=== PATIENT | female | born 1970 | race African-American/Black ===

== ENCOUNTER 2016-08-19 14:18 | Emergency (ER) | payer SELFPAY ==
[~2016-08-19 14:18] MED LIST: ALPR2TAB3 PO; CYAN1000P SQ; FERR325T PO; GABA800T PO; LISI-515 PO; MULTCHW14 PO; [UNRECOGNIZED DRUG - CODE] PO
[2016-08-19 14:19] VITALS: BP 178/100; PULSE 89; RESP 18; TEMP 98; O2SAT 96
[2016-08-19 16:15] LABS: AUTOMATED NEUTROPHIL # 6.4 TH/MM3 (1.8-7.7); BASOPHIL % 0.4 % (0.0-2.0); EOSINOPHIL # 0.1 TH/MM3 (0-0.4); EOSINOPHIL % 1.4 % (0.0-4.0); HEMATOCRIT 44.3 % (35.0-46.0); HEMO FLAGS DIFF FINAL; LYMPH % 26.9 % (9.0-44.0); LYMPHOCYTE # 2.7 TH/MM3 (1.0-4.8); MEAN CELL VOLUME 88.1 FL (80.0-100.0); MEAN CORPUSCULAR HEMOGLOBIN 29.3 PG (27.0-34.0); MEAN CORPUSCULAR HGB CONC 33.2 % (32.0-36.0); MONO % 6.7 % (0.0-8.0); NEUT % 64.6 % (16.0-70.0); PLATELET COUNT 174 TH/MM3 (150-450); RED BLOOD COUNT 5.02 MIL/MM3 (4.00-5.30); RED CELL DISTRIBUTION WIDTH 13.1 % (11.6-17.2); WHITE BLOOD COUNT 9.9 TH/MM3 (4.0-11.0)
--- NOTE | 2016-08-19 16:28 | RADRPT ---
EXAM DATE/TIME: 08/19/2016 16:01 [facility] COMPARISON: CHEST SINGLE AP, March 23, 2016, 5:40. INDICATIONS : Chest pain and short of breath for several days. MEDICAL HISTORY : Hypertension. Congestive heart failure. Asthma, Diabetes. SURGICAL HISTORY : Cholecystectomy. Gastric bypass. Tubal ligation. ENCOUNTER: Initial ACUITY: 3 days PAIN SCORE: 4/10 LOCATION: Bilateral chest FINDINGS: A single view of the chest demonstrates the lungs to be symmetrically aerated without evidence of mas s, infiltrate or effusion. The cardiomediastinal contours are unremarkable. Osseous structures are intact. CONCLUSION: No acute disease. Lexa Mathews MD FACR on August 19, 2016 at 16:26 Board Certified Radiologist. This report was verified electronically.
[2016-08-19 16:32] LABS: ANION GAP 8 MEQ/L (5-15); BICARBONATE 26.5 MEQ/L (21.0-32.0); BLOOD UREA NITROGEN 7 MG/DL (7-18); CHLORIDE 105 MEQ/L (98-107); GLOMERULAR FILTRATION RATE 84 ML/MIN (>89); POTASSIUM 3.5 MEQ/L (3.5-5.1); SODIUM (NA) 139 MEQ/L (136-145)
[2016-08-19 17:15] LABS: CREATINE KINASE 87 U/L (26-192)
--- NOTE | 2016-08-19 20:12 | EKG ---
Date Performed: 08/19/2016 Time Performed: 15:54:22 PTAGE: 45 years EKG: Sinus rhythm NORMAL ECG NO SIGNIFICANT CHANGE FROM PRIOR ELECTROCARDIOGRAM. PREVIOUS TRACING : 03/23/2016 04.58 DOCTOR: Baldo Carty Interpretating Date/Time 08/19/2016 20:11:29
== END 2016-08-19 18:50 | disposition left against medical advice (07) ==
LOC: NED 14:18
DX: R20.0 Anesthesia of skin (principal); Z53.21 Procedure and treatment not carried out due to patient leaving prior to being seen by health care provider
CPT/HCPCS: 71010; 80048; 82550; 84484; 84703; 85025; 93005; 99281

== ENCOUNTER 2016-10-04 12:07 | Emergency (ER) | payer MEDICAID, OTHER ==
[~2016-10-04] VITALS: Ht 162.6 cm; Wt 101.8 kg
[2016-10-04 13:06] VITALS: BP 158/104; PULSE 86; RESP 17; TEMP 98.2; O2SAT 98
[2016-10-04 13:42] VITALS: O2SAT 98
[2016-10-04] MEDS ORDERED: ONDANSETRON HCL 4 MG/2 ML VIAL IVP ONE (13:45)
[2016-10-04] MEDS ORDERED: SODIUM CHLORIDE 0.9% FLUSH 5 ML FLUSH IVF PRN (13:45)
--- NOTE | 2016-10-04 13:49 | PD ---
HPI Chief Complaint: Anxiety Time Seen by Provider: 13:37 Travel History International Travel<30 days: No Contact w/Intl Traveler<30days: No Traveled to known affect area: No History of Present Illness HPI Patient is a 45-year-old female presenting to the emergency department for evaluation of anxiety, abdominal pain, left arm numbness, palpitations, nausea, headache. Patient states her symptoms started this morning, with the exception of her anxiety. She states anxiety has been bad for approximately 4 days. Patient states she has no primary doctor, she's been out of her alprazolam for the last 2 months. Her primary was Dr. Lopez but she states she was not satisfied with the care. Patient would not elaborate. Patient reports a history of diabetes, congestive heart failure, sleep apnea, anxiety, COPD, hypertension. She states that she has been compliant with the other medications because she was given several months of refills PFSH Past Medical History Hx Anticoagulant Therapy: Yes (plavix) Arthritis: Yes Asthma: Yes Autoimmune Disease: No Blood Disorders: No Anxiety: Yes Depression: Yes Cancer: No Cardiac Catheterization: Yes (X2) Cardiomyopathy: Yes High Cholesterol: Yes Chemotherapy: No Chest Pain: Yes Congestive Heart Failure: Yes COPD: Yes Cerebrovascular Accident: No Coronary Artery Disease: Yes Diabetes: Yes Patient Takes Glucophage: Yes Diminished Hearing: No GERD: Yes Glaucoma: No Headaches: Yes Hepatitis: No Hiatal Hernia: No Hypertension: Yes Immune Disorder: No Kidney Stones: No Musculoskeletal: Yes Neurologic: Yes Psychiatric: Yes (ANXIETY) Reproductive: No Respiratory: Yes (COPD) Immunizations Current: No Migraines: Yes Radiation Therapy: No Renal Failure: Yes Seizures: Yes (2008) Sickle Cell Disease: No Sleep Apnea: Yes (CPAP) Thyroid Disease: No Ulcer: No Tetanus Vaccination: > 5 Years ?: Unknown LMP: UNKNOWN Menopausal: Yes : 11 Para: 10 Miscarriage: 1 Tubal Ligation: Yes Past Surgical History Abdominal Surgery: Yes (GASTRIC BYPASS 2012) AICD: No Cardiac Surgery: Yes (2004,2011 cardiac cath) Cholecystectomy: Yes (2004) Coronary Artery Bypass Graft: No Ear Surgery: No Endocrine Surgery: No Eye Surgery: No Genitourinary Surgery: No Gynecologic Surgery: No Neurologic Surgery: No Oral Surgery: No Pacemaker: No Thoracic Surgery: No Other Surgery: Yes Family History Family Myocardial Infarction: Yes Family Hypercholesterolemia: Yes Social History Alcohol Use: No Tobacco Use: Yes Substance Use: Yes (history of cocaine abuse) Allergies-Medications (Allergen,Severity, Reaction): Coded Allergies: Tramadol (Verified Allergy, Severe, Hives, 10/04/16) Ibuprofen (Verified Allergy, Intermediate, RASH, 10/04/16) Toradol (Verified Adverse Reaction, Severe, 10/04/16) POSSIBEL DYSTONIAS Reported Meds & Prescriptions Reported Meds & Active Scripts Active Reported Alprazolam 2 Mg Tab 2 Mg PO TID Ferrous Sulfate 325 Mg Tab 325 Mg PO DAILY Cyanocobalamin Inj (Cyanocobalamin) 1,000 Mcg/Ml Inj 1,000 Mcg SQ Q30D Omeprazole-Sodium Bicarbonate 20-1,100 Mg Cap 1 Cap PO DAILY Lisinopril 20 Mg Tab 20 Mg PO DAILY Gabapentin 800 Mg Tab 800 Mg PO DAILY Adult Gummy (Multiple Vitamins W/ Minerals) 1 Chw Chw 1 Tab PO DAILY Review of Systems Except as stated in HPI: all other systems reviewed are Neg General / Constitutional: No: Fever, Chills Eyes: No: Visual changes HENT: Positive: Headaches, No: Neck Pain Cardiovascular: Positive: Chest Pain or Discomfort, Palpitations Respiratory: No: Cough, Shortness of Breath Gastrointestinal: Positive: Nausea, Abdominal Pain, No: Vomiting, Diarrhea, Changes in Bowel Habits Neurologic: Positive: Sensory Disturbance, No: Dizziness, Syncope, Focal Abnormalities Psychiatric: Positive: Anxiety Physical Exam Narrative GENERAL: Obese, well-developed, alert female. Resting comfortably in no acute distress. Patient does appear anxious. SKIN: Warm and dry. HEAD: Atraumatic. Normocephalic. EYES: Pupils equal and round. No scleral icterus. No injection or drainage. ENT: No nasal bleeding or discharge. Mucous membranes pink and moist. NECK: Trachea midline. No JVD. CARDIOVASCULAR: Regular rate and rhythm. No murmur appreciated. RESPIRATORY: No accessory muscle use. Clear to auscultation. Breath sounds equal bilaterally. GASTROINTESTINAL: Abdomen soft, mildly tender to palpation epigastric region, no rebound, no guarding, nondistended. Hepatic and splenic margins not palpable. Positive bowel sounds. MUSCULOSKELETAL: No obvious deformities. No clubbing. No cyanosis. No edema. NEUROLOGICAL: Awake and alert. No obvious cranial nerve deficits. Motor grossly within normal limits. Normal speech. PSYCHIATRIC: Appropriate mood and affect; insight and judgment normal. Data Data Last Documented VS Vital Signs Date Time Temp Pulse Resp B/P Pulse Ox O2 Delivery O2 Flow Rate FiO2 10/04/16 13:42 98 Room Air 10/04/16 13:06 98.2 86 17 158/104 Orders Electrocardiogram (10/04/16 12:19) Prothrombin Time / Inr (Pt) (10/04/16 13:33) Act Partial Throm Time (Ptt) (10/04/16 13:33) Complete Blood Count With Diff (10/04/16 13:33) Comprehensive Metabolic Panel (10/04/16 13:33) Creatine Kinase (Cpk) (10/04/16 13:33) Drug Screen, Random Urine (10/04/16 13:33) Troponin I (10/04/16 13:33) Urinalysis - C+S If Indicated (10/04/16 13:33) Ct Brain W/O Iv Contrast(Rout) (10/04/16 13:33) Ecg Monitoring (10/04/16 13:33) Iv Access Insert/Monitor (10/04/16 13:33) Oximetry (10/04/16 13:33) Ondansetron Inj (Zofran Inj) (10/04/16 13:45) Sodium Chloride 0.9% Flush (Ns Flush) (10/04/16 13:45) Ed Urine Pregnancytest Poc (10/04/16 13:33) Urine Culture (10/04/16 14:00) Hydroxyzine Pamoate (Vistaril) (10/04/16 14:45) Troponin I (10/04/16 16:30) Labs Laboratory Tests Test 10/04/16 14:00 White Blood Count 9.2 TH/MM3 Red Blood Count 4.61 MIL/MM3 Hemoglobin 13.7 GM/DL Hematocrit 40.4 % Mean Corpuscular Volume 87.7 FL Mean Corpuscular Hemoglobin 29.7 PG Mean Corpuscular Hemoglobin 33.9 % Concent Red Cell Distribution Width 13.1 % Platelet Count 169 TH/MM3 Mean Platelet Volume 9.9 FL Neutrophils (%) (Auto) 64.8 % Lymphocytes (%) (Auto) 26.0 % Monocytes (%) (Auto) 7.4 % Eosinophils (%) (Auto) 1.2 % Basophils (%) (Auto) 0.6 % Neutrophils # (Auto) 6.0 TH/MM3 Lymphocytes # (Auto) 2.4 TH/MM3 Monocytes # (Auto) 0.7 TH/MM3 Eosinophils # (Auto) 0.1 TH/MM3 Basophils # (Auto) 0.1 TH/MM3 CBC Comment DIFF FINAL Differential Comment Prothrombin Time 10.7 SEC Prothromb Time International 1.0 RATIO Ratio Activated Partial 32.0 SEC Thromboplast Time Urine Color YELLOW Urine Turbidity CLEAR Urine pH 6.0 Urine Specific [place] 1.022 Urine Protein NEG mg/dL Urine Glucose (UA) NEG mg/dL Urine Ketones NEG mg/dL Urine Occult Blood NEG Urine Nitrite NEG Urine Bilirubin NEG Urine Urobilinogen 4.0 MG/DL Urine Leukocyte Esterase MOD Urine RBC 1 /hpf Urine WBC 14 /hpf Urine WBC Clumps RARE Urine Squamous Epithelial 3 /hpf Cells Urine Mucus FEW /lpf Microscopic Urinalysis Comment CATH-CULTURE IND Sodium Level 138 MEQ/L Potassium Level 4.5 MEQ/L Chloride Level 101 MEQ/L Carbon Dioxide Level 30.8 MEQ/L Anion Gap 6 MEQ/L Blood Urea Nitrogen 9 MG/DL Creatinine 0.84 MG/DL Estimat Glomerular Filtration 89 ML/MIN Rate Random Glucose 87 MG/DL Calcium Level 8.7 MG/DL Total Bilirubin 0.3 MG/DL Aspartate Amino Transf 43 U/L (AST/SGOT) Alanine Aminotransferase 29 U/L (ALT/SGPT) Alkaline Phosphatase 109 U/L Total Creatine Kinase 154 U/L Troponin I LESS THAN 0.02 NG/ML Total Protein 7.7 GM/DL Albumin 3.7 GM/DL Urine Opiates Screen NEG Urine Barbiturates Screen NEG Urine Amphetamines Screen NEG Urine Benzodiazepines Screen POS Urine Cocaine Screen POS Urine Cannabinoids Screen POS [facility] Medical Decision Making Medical Screen Exam Complete: Yes Emergency Medical Condition: Yes Interpretation(s) Vital Signs Date Time Temp Pulse Resp B/P Pulse Ox O2 Delivery O2 Flow Rate FiO2 10/04/16 13:06 98.2 86 17 158/104 98 Differential Diagnosis CVA versus TIA versus cardiac arrhythmia versus AMI versus anxiety versus electrolyte abnormality versus congestive heart failure versus other Narrative Course Patient is a 45-year-old female presenting to the emergency department with multiple medical complaints. In the forefront is her complaint of anxiety that is increasingly got worse over the last 4 days. Patient was on alprazolam 2 mg 3 times a day but has been out for approximately 2 months. Reports compliance with her blood pressure and diabetes medications. Labs and imaging ordered and pending. Patient placed on monitor monitoring, continuous pulse oximetry, IV access was established. EKG shows sinus rhythm with a rate of 74. Patient had stated that she has been out of her alprazolam for 2 months, urine drug screen came back positive for benzodiazepines, cocaine, marijuana. When confronted patient continued to say she has not had any medication in that time period. She then stated that she went to another hospital and was given a shot. Anxiety is likely exacerbated secondary to cocaine use. EKG shows normal sinus rhythm with a rate of 74. CBC is unremarkable, urinalysis with pyuria, culture is pending. Chemistry is unremarkable, troponin is negative on the less than 0.[address] is negative, normal for patient's age. Patient requested an Ativan shot. She stated that she was given it at the other hospital. Patient was given Vistaril. She stated that we were not helping her. Patient was advised that we were ruling out a cardiac process which would be or could be life-threatening. She herself stated she has been off of her alprazolam for 2 months. She was encouraged to follow up with a primary doctor or with a psychiatrist for management of her anxiety. Troponin was ordered first 1630 however patient left the emergency department prior to that being performed. Patient did sign an AMA form for the nurse. Patient did not receive any prescriptions or instructions prior to leaving. Disposition: 07 AGAINST MEDICAL ADVICE Kaitlyn Sotelo Oct 04, 2016 13:49
[2016-10-04 14:15] LABS: BASOPHIL # 0.1 TH/MM3 (0-0.2); BASOPHIL % 0.6 % (0.0-2.0); EOSINOPHIL # 0.1 TH/MM3 (0-0.4); EOSINOPHIL % 1.2 % (0.0-4.0); HEMATOCRIT 40.4 % (35.0-46.0); HEMO FLAGS DIFF FINAL; LYMPHOCYTE # 2.4 TH/MM3 (1.0-4.8); MEAN CELL VOLUME 87.7 FL (80.0-100.0); MEAN CORPUSCULAR HEMOGLOBIN 29.7 PG (27.0-34.0); MEAN CORPUSCULAR HGB CONC 33.9 % (32.0-36.0); MONO % 7.4 % (0.0-8.0); NEUT % 64.8 % (16.0-70.0); PLATELET COUNT 169 TH/MM3 (150-450); RED BLOOD COUNT 4.61 MIL/MM3 (4.00-5.30); RED CELL DISTRIBUTION WIDTH 13.1 % (11.6-17.2); WHITE BLOOD COUNT 9.2 TH/MM3 (4.0-11.0)
[2016-10-04 14:24] LABS: BLOOD, URINE NEG (NEG); COMMENT (UR) CATH-CULTURE IND; CULTURE IF INDICATED CATH CULTURE IND; GLUCOSE,URINE NEG (NEG); KETONE, URINE NEG (NEG); MUCUS URINE FEW /lpf (OCC); NITRITE,URINE NEG (NEG); PROTHROMBIN TIME - PATIENT 10.7 SEC (9.8-11.6); SQUAMOUS EPITHELIAL CELL URINE 3 /hpf (0-5); URINE COLOR YELLOW (YELLW/STRAW)
[2016-10-04 14:28] LABS: AMPHETAMINE, URINE NEG (NEG); BARBITURATES, URINE NEG (NEG); COCAINE, URINE POS (NEG)
[2016-10-04 14:54] LABS: ALKALINE PHOSPHATASE 109 U/L (45-117); ALT (GPT) 29 U/L (10-53); ANION GAP 6 MEQ/L (5-15); BICARBONATE 30.8 MEQ/L (21.0-32.0); BLOOD UREA NITROGEN 9 MG/DL (7-18); CHLORIDE 101 MEQ/L (98-107); CREATINE KINASE 154 U/L (26-192); GLOMERULAR FILTRATION RATE 89 ML/MIN (>89); SODIUM (NA) 138 MEQ/L (136-145); TOTAL BILIRUBIN ADULT 0.3 MG/DL (0.2-1.0)
[2016-10-04 14:58] LABS: AST (GOT) 43 U/L (15-37); POTASSIUM 4.5 MEQ/L (3.5-5.1)
--- NOTE | 2016-10-04 15:08 | RADRPT ---
EXAM DATE/TIME: 10/04/2016 14:41 [facility] COMPARISON: No previous studies available for comparison. INDICATIONS : Left facial pain and numbness. RADIATION DOSE: 56.35 CTDIvol (mGy) MEDICAL HISTORY : Seizures. Hypertension. Cardiovascular disease SURGICAL HISTORY : Gastric bypass. Tubal ligation. ENCOUNTER: Initial ACUITY: 1 day PAIN SCALE: 3/10 LOCATION: cranial TECHNIQUE: Multiple contiguous axial images were obtained of the head. Using automated exposure control and adj ustment of the mA and/or kV according to patient size, radiation dose was kept as low as reasonably a chievable to obtain optimal diagnostic quality images. FINDINGS: CEREBRUM: The ventricles are normal for age. No evidence of midline shift, mass lesion, hemorrhage or acute in farction. No extra-axial fluid collections are seen. POSTERIOR FOSSA: The cerebellum and brainstem are intact. The 4th ventricle is midline. The cerebellopontine angle i s unremarkable. EXTRACRANIAL: The visualized portion of the orbits is intact. SKULL: The calvaria is intact. No evidence of skull fracture. CONCLUSION: Normal examination for a patient of this age. No significant change has occurred. Nicolas Gomez MD on October 04, 2016 at 15:05 Board Certified Radiologist. This report was verified electronically.
--- NOTE | 2016-10-05 14:37 | EKG ---
Date Performed: 10/04/2016 Time Performed: 12:29:57 PTAGE: 45 years EKG: Sinus rhythm NORMAL ECG PREVIOUS TRACING : 08/19/2016 15.54 DOCTOR: Anirudh Horn Interpretating Date/Time 10/05/2016 14:32:22
== END 2016-10-04 16:38 | disposition left against medical advice (07) ==
LOC: NEPE 12:07
DX: R10.9 Unspecified abdominal pain (principal); R20.0 Anesthesia of skin; R00.2 Palpitations; R11.0 Nausea; R51 Headache; J44.9 Chronic obstructive pulmonary disease, unspecified; I10 Essential (primary) hypertension; E11.9 Type 2 diabetes mellitus without complications; I50.9 Heart failure, unspecified; F41.9 Anxiety disorder, unspecified; Z79.01 Long term (current) use of anticoagulants; J45.909 Unspecified asthma, uncomplicated; I42.9 Cardiomyopathy, unspecified; E78.00 Pure hypercholesterolemia, unspecified; I25.10 Atherosclerotic heart disease of native coronary artery without angina pectoris; K21.9 Gastro-esophageal reflux disease without esophagitis; Z72.0 Tobacco use
CPT/HCPCS: 70450; 80053; 80307; 81001; 82550; 84484; 84703; 85025; 85610; 85730; 87086; 93005

== ENCOUNTER 2017-05-20 08:02 | Emergency (ER) | payer MEDICAID ==
[2017-05-20 08:10] VITALS: BP 177/112; PULSE 89; RESP 18; TEMP 99.6; O2SAT 97
[2017-05-20] MEDS ORDERED: HYDR-3583 PO (08:24)
[2017-05-20] MEDS ORDERED: SODIUM CHLOR 0.9% 1000 ML INJ 1,000 ML IV SCH (08:55)
[2017-05-20 09:00] VITALS: O2SAT 97
[2017-05-20] MEDS ORDERED: SODIUM CHLORIDE 0.9% FLUSH 10 ML FLUSH IV FLUSH PRN (09:00)
[2017-05-20] MEDS ORDERED: ACETAMINOPHEN/HYDROcodone 325 MG/5 MG TAB PO ONE (09:00)
[2017-05-20] MEDS ORDERED: ONDANSETRON HCL 4 MG/2 ML VIAL IV PUSH ONE (09:00)
[2017-05-20 09:35] LABS: AUTOMATED NEUTROPHIL # 5.2 TH/MM3 (1.8-7.7); BASOPHIL % 0.5 % (0.0-2.0); EOSINOPHIL # 0.1 TH/MM3 (0-0.4); EOSINOPHIL % 1.5 % (0.0-4.0); HEMATOCRIT 39.2 % (35.0-46.0); HEMO FLAGS DIFF FINAL; LYMPH % 31.9 % (9.0-44.0); LYMPHOCYTE # 2.8 TH/MM3 (1.0-4.8); MEAN CELL VOLUME 91.8 FL (80.0-100.0); MEAN CORPUSCULAR HEMOGLOBIN 30.4 PG (27.0-34.0); MEAN CORPUSCULAR HGB CONC 33.1 % (32.0-36.0); MONO % 6.5 % (0.0-8.0); NEUT % 59.6 % (16.0-70.0); PLATELET COUNT 173 TH/MM3 (150-450); RED BLOOD COUNT 4.27 MIL/MM3 (4.00-5.30); RED CELL DISTRIBUTION WIDTH 14.1 % (11.6-17.2); WHITE BLOOD COUNT 8.7 TH/MM3 (4.0-11.0)
--- NOTE | 2017-05-20 09:42 | PD ---
HPI Chief Complaint: Abdominal Pain Time Seen by Provider: 08:25 Travel History International Travel<30 days: No Contact w/Intl Traveler<30days: No Traveled to known affect area: No History of Present Illness HPI 46-year-old female came to the emergency room with history of generalized abdominal pain, nausea, vomiting, toothache, left shoulder pain, left leg pain among few other pains. Patient says she is supposed to be on hydrocodone and Xanax but ran out of her prescriptions yesterday. She does not have a primary care doctor. Currently she is in severe pain and would like to get a shot of morphine or Dilaudid. She also wanted something for anxiety. Her is in the ICU for seizures and she decided to come down to the emergency room for these. Vital signs are stable. [facility] Past Medical History Narrative Medical List of her past medical, surgical, social and family history is reviewed from the nursing note. Hx Anticoagulant Therapy: Yes (plavix) Arthritis: Yes Asthma: Yes Autoimmune Disease: No Blood Disorders: No Anxiety: Yes Depression: Yes Heart Rhythm Problems: Yes ("ENLARGED HEART") Cancer: No Cardiac Catheterization: Yes (X2) Cardiomyopathy: Yes Cardiovascular Problems: Yes (CHF) High Cholesterol: Yes Chemotherapy: No Chest Pain: Yes Congestive Heart Failure: Yes COPD: Yes Cerebrovascular Accident: No Coronary Artery Disease: Yes Diabetes: Yes Dialysis: Yes Diminished Hearing: No Endocrine: Yes Gastrointestinal Disorders: Yes (gastric bypass 2012) GERD: Yes Glaucoma: No Genitourinary: Yes ("KIDNEYS ARE FAILING") Headaches: Yes Hepatitis: No Hiatal Hernia: No Hypertension: Yes Immune Disorder: No Kidney Stones: No Musculoskeletal: Yes Neurologic: Yes Psychiatric: Yes (ANXIETY) Reproductive: No Respiratory: Yes (COPD) Immunizations Current: No Migraines: Yes Myocardial Infarction: Yes Radiation Therapy: No Renal Failure: Yes Schizophrenia: Yes Seizures: Yes (2008) Sickle Cell Disease: No Sleep Apnea: Yes (CPAP) Thyroid Disease: No Ulcer: No ?: Not Menopausal: Yes : 11 Para: 10 Miscarriage: 1 Tubal Ligation: Yes Past Surgical History Abdominal Surgery: Yes (GASTRIC BYPASS 2012) AICD: No Cardiac Surgery: Yes (2004,2011 cardiac cath) Cholecystectomy: Yes (2004) Coronary Artery Bypass Graft: No Ear Surgery: No Endocrine Surgery: No Eye Surgery: No Genitourinary Surgery: No Gynecologic Surgery: No Neurologic Surgery: No Oral Surgery: No Pacemaker: No Thoracic Surgery: No Other Surgery: Yes Family History Family Myocardial Infarction: Yes Family Hypercholesterolemia: Yes Social History Alcohol Use: Yes (socially) Tobacco Use: No Substance Use: No (history of cocaine abuse) Allergies-Medications (Allergen,Severity, Reaction): Coded Allergies: tramadol (Unverified Allergy, Severe, Hives, 05/20/17) ibuprofen (Unverified Allergy, Intermediate, RASH, 05/20/17) acetaminophen (Verified Allergy, Mild, Hives, 05/20/17) ketorolac (Unverified Adverse Reaction, Severe, 05/20/17) POSSIBEL DYSTONIAS Comments List of her allergies reviewed from the nursing note. Reported Meds & Prescriptions Reported Meds & Active Scripts Active Reported Hydrocodone-Acetaminophen 10-325 mg Tab 1 Tab PO Q6H PRN Alprazolam 2 Mg Tab 2 Mg PO TID Cyanocobalamin Inj (Cyanocobalamin) 1,000 Mcg/Ml Inj 1,000 Mcg SQ Q30D Lisinopril 20 Mg Tab 20 Mg PO DAILY Gabapentin 800 Mg Tab 800 Mg PO DAILY Narrative Medication List of her home medications reviewed from the nursing note. Review of Systems Except as stated in HPI: all other systems reviewed are Neg Physical Exam Narrative GENERAL: Awake, alert, moderate distress SKIN: Focused skin assessment warm/dry. HEAD: Atraumatic. Normocephalic. EYES: Pupils equal and round. No scleral icterus. No injection or drainage. ENT: No nasal bleeding or discharge. Mucous membranes pink and moist. NECK: Trachea midline. No JVD. CARDIOVASCULAR: Regular rate and rhythm. No murmur appreciated. RESPIRATORY: No accessory muscle use. Clear to auscultation. Breath sounds equal bilaterally. GASTROINTESTINAL: Abdomen soft, non-tender, nondistended. Hepatic and splenic margins not palpable. MUSCULOSKELETAL: No obvious deformities. No clubbing. No cyanosis. No edema. NEUROLOGICAL: Awake and alert. No obvious cranial nerve deficits. Motor grossly within normal limits. Normal speech. PSYCHIATRIC: Appropriate mood and affect; insight and judgment normal. Data Data Last Documented VS Vital Signs Date Time Temp Pulse Resp B/P (MAP) Pulse Ox O2 Delivery O2 Flow Rate FiO2 05/20/17 09:27 05/20/17 09:00 97 Room Air 05/20/17 08:10 99.6 89 18 Orders Orders Complete Blood Count With Diff (05/20/17 08:55) Comprehensive Metabolic Panel (05/20/17 08:55) Lipase (05/20/17 08:55) Iv Access Insert/Monitor (05/20/17 08:55) Ecg Monitoring (05/20/17 08:55) Oximetry (05/20/17 08:55) Sodium Chlor 0.9% 1000 Ml Inj (Ns 1000 M (05/20/17 08:55) Sodium Chloride 0.9% Flush (Ns Flush) (05/20/17 09:00) Acetamin-Hydrocod 325-5 Mg (Isaban 5-325 (05/20/17 09:00) Ondansetron Inj (Zofran Inj) (05/20/17 09:00) Labs Laboratory Tests Test 05/20/17 09:05 White Blood Count 8.7 TH/MM3 Red Blood Count 4.27 MIL/MM3 Hemoglobin 13.0 GM/DL Hematocrit 39.2 % Mean Corpuscular Volume 91.8 FL Mean Corpuscular Hemoglobin 30.4 PG Mean Corpuscular Hemoglobin Concent 33.1 % Red Cell Distribution Width 14.1 % Platelet Count 173 TH/MM3 Mean Platelet Volume 9.6 FL Neutrophils (%) (Auto) 59.6 % Lymphocytes (%) (Auto) 31.9 % Monocytes (%) (Auto) 6.5 % Eosinophils (%) (Auto) 1.5 % Basophils (%) (Auto) 0.5 % Neutrophils # (Auto) 5.2 TH/MM3 Lymphocytes # (Auto) 2.8 TH/MM3 Monocytes # (Auto) 0.6 TH/MM3 Eosinophils # (Auto) 0.1 TH/MM3 Basophils # (Auto) 0.0 TH/MM3 CBC Comment DIFF FINAL Differential Comment Blood Urea Nitrogen 9 MG/DL Creatinine 0.80 MG/DL Random Glucose 87 MG/DL Total Protein 7.1 GM/DL Albumin 3.5 GM/DL Calcium Level 8.9 MG/DL Alkaline Phosphatase 105 U/L Aspartate Amino Transf (AST/SGOT) 22 U/L Alanine Aminotransferase (ALT/SGPT) 25 U/L Total Bilirubin 0.4 MG/DL Sodium Level 139 MEQ/L Potassium Level 3.7 MEQ/L Chloride Level 104 MEQ/L Carbon Dioxide Level 27.8 MEQ/L Anion Gap 7 MEQ/L Estimat Glomerular Filtration Rate 94 ML/MIN Lipase 158 U/L [facility] Medical Decision Making Medical Screen Exam Complete: Yes Emergency Medical Condition: Yes Medical Record Reviewed: Yes Differential Diagnosis Malingering, gastritis, electrolyte abnormality, acute pancreatitis Narrative Course 9:40 AM patient was ordered medication for pain and awaiting for the blood test result. However I just found out from the nurse that patient pulled her IV out and left stating that the pain medication that was offered to her was not sufficient to take care of her pain. I had also mentioned to her that she would not get refill for the narcotics that she has run out of since this is not a primary care facility and she would have to find a primary care doctor to give her the prescriptions for refill. I did not get a chance to talk to the patient and hence could not explain to her the risks and benefits. Procedures EKG Prior to Arrival: No Diagnosis Primary Impression: Abdominal pain Qualified Codes: R10.84 - Generalized abdominal pain Disposition: AGAINST MEDICAL ADVICE Condition: Serious Franco Chin MD May 20, 2017 09:42
[2017-05-20 09:49] LABS: ANION GAP 7 MEQ/L (5-15); AST (GOT) 22 U/L (15-37); BICARBONATE 27.8 MEQ/L (21.0-32.0); BLOOD UREA NITROGEN 9 MG/DL (7-18); CHLORIDE 104 MEQ/L (98-107); GLOMERULAR FILTRATION RATE 94 ML/MIN (>89); POTASSIUM 3.7 MEQ/L (3.5-5.1); SODIUM (NA) 139 MEQ/L (136-145)
[2017-05-20 09:51] LABS: ALT (GPT) 25 U/L (10-53)
[2017-05-20 09:53] LABS: ALKALINE PHOSPHATASE 105 U/L (45-117); TOTAL BILIRUBIN ADULT 0.4 MG/DL (0.2-1.0)
== END 2017-05-20 10:03 | disposition left against medical advice (07) ==
LOC: NEPC 08:02
DX: R10.84 Generalized abdominal pain (principal); R11.2 Nausea with vomiting, unspecified; M79.605 Pain in left leg; M25.512 Pain in left shoulder
CPT/HCPCS: 80053; 83690; 85025; 96374; 99284; J2405; J7030